=== PATIENT | female | born 1965 | race Caucasian/White ===

== ENCOUNTER 2016-10-10 21:44 | Emergency (ER) | payer OTHER ==
[~2016-10-10] VITALS: Ht 165.1 cm; Wt 55.3 kg
[~2016-10-10 21:44] MED LIST: TORADOL10 MG PO
[2016-10-10 22:50] LABS: ABSOLUTE BASOPHIL COUNT 0.1 /CUMM (0.0-0.2); ABSOLUTE EOSINOPHIL COUNT 0.1 /CUMM (0.0-0.7); ABSOLUTE GRANULOCYTE CT 5.4 /CUMM (1.4-6.5); ABSOLUTE LYMPH COUNT 3.4 /CUMM (1.2-3.4); ABSOLUTE MONOCYTE COUNT 0.6 /CUMM (0.10-0.60); BASOPHIL % 0.8 % (0.0-2.0); EOSINOPHIL % 1.5 % (0-5); GRANULOCYTE % 56.3 % (42.2-75.2); HEMATOCRIT 47.1 % (37-47); MEAN CORPUSCULAR HGB 29.4 PG (27.0-31.0); MEAN CORPUSCULAR HGB CONC 33.1 G/DL (33.0-37.0); MEAN CORPUSCULAR VOLUME 88.8 FL (81.0-99.0); MEAN PLATELET VOLUME 8.1 FL (7.4-10.4); PLATELET COUNT 221 /CUMM (130-400); RBC DISTRIBUTION WIDTH 13.3 % (11.5-14.5); RED BLOOD CELL CT 5.31 /CUMM (4.20-5.40); WHITE BLOOD CELL COUNT 9.6 /CUMM (4.8-10.8)
--- NOTE | 2016-10-10 22:56 | ED GI/GU/ABDOMINAL COMPLAINT ---
History of Present Illness General Chief Complaint: Abdominal Pain/Flank Pain Stated Complaint: RIGHT ABD PAIN Source: patient, old records, Exam Limitations: no limitations Vital Signs & Intake/Output Vital Signs & Intake/Output Vital Signs Date Time Temp Pulse Resp B/P Pulse O2 O2 Flow FiO2 Ox Delivery Rate 10/10 2352 97.1 60 18 166/81 95 Room Air 10/10 2253 Room Air 10/10 2158 98.6 91 18 173/96 96 Room Air ED Intake and Output 10/11 0000 10/10 1200 Intake Total Output Total Balance Patient 122 lb Weight Allergies Coded Allergies: NO KNOWN ALLERGIES (07/15/13) Reconcile Medications No Known Home Medications Triage Note: RECEIVED 51 YO FEMALE C/O SEVERE RIGHT FLANK AREA PAIN, STARTED TODAY. + NAUSEA/VOMITING. Triage Nurses Notes Reviewed? yes ? n Is pt currently ? No HPI: Patient presents for evaluation of a right-sided abdominal pain that began last night. Patient is not sure but it seemed to be gradual in onset. It has now become more severe. The right flank pain she states feels like a prior kidney stone pain. In addition she is also having a right lower abdominal pain that is more cramping in nature. She tried Gas-X for the possibility of gas pains without improvement. Pains worsened with exertion. Patient denies associated fever or cold symptoms dysuria or diarrhea. She has felt nauseous and has even vomited. Past History Travel History Traveled to [place] past 21 day No Medical History Any Pertinent Medical History? see below for history Neurological: NONE EENT: NONE Cardiovascular: NONE Respiratory: NONE Gastrointestinal: NONE Hepatic: NONE Renal: NONE Musculoskeletal: NONE Psychiatric: NONE Endocrine: NONE Blood Disorders: NONE Cancer(s): NONE Other Medical Hx: KIDNEY STONES Tetanus Vaccine: 09/27/13 Surgical History Surgical History: non-contributory, hysterectomy Psychosocial History Who do you live with Family What is your primary language Swedish Tobacco Use: Current Daily Use Daily Tobacco Use Amount/Type: => 5 Cigarettes daily Family History Hx Contributory? No Review of Systems Review of Systems Constitutional: Reports: no symptoms. EENTM: Reports: no symptoms. Respiratory: Reports: no symptoms. Cardiovascular: Reports: no symptoms. GI: Reports: see HPI. Genitourinary: Reports: no symptoms. Musculoskeletal: Reports: see HPI. Skin: Reports: no symptoms. Neurological/Psychological: Reports: no symptoms. Hematologic/Endocrine: Reports: no symptoms. Immunologic/Allergic: Reports: no symptoms. All Other Systems: Reviewed and Negative Physical Exam Physical Exam Gastrointestinal: see below Comments: Gen.: Well-nourished, well-developed, no acute respiratory distress., Mild distress secondary to pain. Head: Normocephalic, atraumatic. Eyes: Normal inspection bilaterally Ears: Normal inspection bilaterally Nose: Normal inspection Throat/mouth : Moist mucosa Neck: Supple, full range of motion, no goiter Heart: Regular rate and rhythm, no murmurs rubs or gallops Lungs: Clear to auscultation bilaterally with normal air entry Chest: Nontender Back: Normal range of motion, mild tenderness over the right flank with palpation and percussion Abdomen: Soft, right lower quadrant abdominal tenderness without rebound or guarding, nondistended, normal bowel sounds Extremities: Normal range of motion grossly, equal radial pulses, no cyanosis clubbing or edema Neurologic: Cranial nerves grossly intact, speech is clear Skin: warm and dry Psychiatric: Calm, cooperative, no apparent delusions or hallucinations Core Measures ACS in differential dx? No Severe Sepsis Present: No Septic Shock Present: No Progress Differential Diagnosis: kidney stone, ovarian cyst, pancreatitis, UTI/pyelo Plan of Care: Orders Procedure Date/time Status Add-on Test (ER Only) 10/11 2255 Active LIPASE 10/11 2227 Complete URINALYSIS 10/10 2221 Complete COMPREHENSIVE METABOLIC PANEL 10/10 2221 Complete CBC WITHOUT DIFFERENTIAL 10/10 2221 Complete Laboratory Tests 10/10/162237: Urine Color YEL, Urine Clarity CLEAR, Urine pH 7.0, Ur Specific [place] 1.010, Urine Protein NEG, Urine Ketones NEG, Urine Nitrite NEG, Urine Bilirubin NEG, Urine Urobilinogen 0.2, Ur Leukocyte Esterase NEG, Ur Microscopic SEDIMENT EXAMINED, Urine RBC RARE, Ur Epithelial Cells FEW, Urine Hemoglobin TRACE-INTACT , Urine Glucose NEG 10/10/162227: Anion Gap 11, Estimated GFR > 60, BUN/Creatinine Ratio 15.7, Glucose 78, Calcium 9.4, Total Bilirubin 0.4, AST 23, ALT 32, Alkaline Phosphatase 55, Total Protein 7.1, Albumin 4.2, Globulin 2.9, Albumin/Globulin Ratio 1.4, Lipase 75, CBC w Diff NO MAN DIFF REQ, RBC 5.31, MCV 88.8, MCH 29.4, RDW 13.3, MPV 8.1, Gran % 56.3, Lymphocytes % 34.9, Monocytes % 6.5, Eosinophils % 1.5, Basophils % 0.8, Absolute Granulocytes 5.4, Absolute Lymphocytes 3.4, Absolute Monocytes 0.6, Absolute Eosinophils 0.1, Absolute Basophils 0.1, PUBS MCHC 33.1 Diagnostic Imaging: Discussed w/RAD: CT Scan. Radiology Impression: PATIENT: SIRI ERICKSON PRESENT AGE: 51 PATIENT ACCOUNT NO: [id number] : 63 LOCATION: [facility] ORDERING PHYSICIAN: BJ WAY MD SERVICE DATE: 10/10/16 EXAM TYPE: CAT - CT ABD & PELVIS W/O IV CONTRAS EXAMINATION: CT ABDOMEN AND PELVIS WITHOUT CONTRAST CLINICAL INFORMATION: Right flank pain. Abdominal pain. COMPARISON: CT scan abdomen pelvis 10/28/2014 TECHNIQUE: Multidetector volumetric imaging was performed from the superior aspect of the liver through the pubic symphysis. Sagittal and coronal reformatted images were obtained on the technologist's workstation. DLP: 253.13 mGy-cm FINDINGS: LUNG BASES: The visualized lung bases are unremarkable. LIVER, GALLBLADDER, AND BILIARY TREE: The liver is normal in size, shape, and attenuation. No focal hepatic lesion or biliary ductal dilatation is present. The gallbladder is unremarkable with no evidence of radiopaque gallstones, gallbladder wall thickening, or obvious pericholecystic inflammatory changes. PANCREAS: Unremarkable. SPLEEN: Unremarkable. ADRENAL GLANDS: Unremarkable. KIDNEYS AND URETERS: There is a 3 mm stone and a 2 mm stone in the upper pole of the right kidney. There is a 1 mm stone in the mid pole of the right kidney. No stone in left kidney. There is no hydronephrosis. No ureteral calculus. There are multiple calcifications in the pelvis which are consistent with calcified phleboliths. No distal ureteral stone. BLADDER: Unremarkable. GASTROINTESTINAL TRACT: Moderate to large-volume of stool throughout colon. No bowel obstruction. No bowel wall thickening or edema. The appendix is normal. Small bowel loops unremarkable. ABDOMINAL WALL: No significant hernia is appreciated. LYMPH NODES: Normal. VASCULAR: A few scattered vascular wall calcifications of aorta. No aneurysm. PELVIC VISCERA: Status post hysterectomy. There are cystic structures in the pelvis likely related to ovary. 2 cysts are present. Largest at the midline measures 7.3 cm in diameter. There is a second cystic lesion in the far right adnexa measuring 2.8 cm AP. OSSEOUS STRUCTURES: Unremarkable. IMPRESSION: 1. Nonobstructive right renal stones. No hydronephrosis. 2. Status post hysterectomy. There are 2 pelvic cysts likely related to the ovaries, ovarian or paraovarian cyst. DICTATED BY: MYRA FERRARI MD DATE/TIME DICTATED:10/10/162348 CAKE MIXER:SEN DATE/TIME TRANSCRIBED:10/10/162348 CONFIDENTIAL, DO NOT COPY WITHOUT APPROPRIATE AUTHORIZATION. <Electronically signed in Other Vendor System> SIGNED BY: MYRA FERRARI MD 10/11/16 0000 Initial ED EKG: none Comments: 10/11/2016 12:29:33 AM patient has gotten good relief of pain with the Toradol. She appears comfortable and she is quite conversant and pleasant. Although the etiology of her pain is somewhat unclear at this point, I have informed her of the ovarian cysts seen on CAT scan. Departure Departure Disposition: HOME OR SELF CARE Condition: Stable Clinical Impression Primary Impression: Ovarian cyst Qualifiers: Laterality: bilateral Qualified Codes: N83.201 - Unspecified ovarian cyst, right side; N83.202 - Unspecified ovarian cyst, left side Secondary Impressions: Right flank pain Referrals: AMITA FREIRE,KIM JENNINGS (PCP/Family) Additional Instructions: Voltaren as prescribed for pain. Add [place] if necessary. Follow-up with your [facility] doctor on Thursday for reevaluation of your ovarian cysts. If any other signs or symptoms should occur please follow-up with your primary care doctor as soon as possible or return to the emergency department. Please note that there might be incidental findings in your evaluation that are unrelated to the current emergency department visit. Please notify your primary care doctor about this emergency department visit in order to obtain and review all of the testing performed so that these incidental findings can be monitored as needed. If you had an x-ray performed, please understand that some fractures may not be seen on the initial set of x-rays. If your symptoms persist you might need a repeat set of x-rays to check for such a fracture. If you had a laceration evaluated, please understand that foreign bodies such as glass or wood may not be visible to the naked eye or on plain x-rays. If the wound becomes red, swollen, increasingly more painful or if there is any drainage from the wound, please have it reevaluated by a physician for the possibility of a retained foreign body. Thank you for choosing the [facility] Emergency Department for your care. It was a pleasure to serve you today. Bj Way M.D. [facility] Departure Forms: Customer Survey General Discharge Information Prescriptions: Current Visit Scripts Diclofenac Sodium 1 TAB PO BID PRN PAIN #14 TAB Hydrocodone/Acetaminophen ([place] 5-325 Tablet) 1-2 TAB PO Q6P PRN PAIN #20 TAB Critical Care Note Critical Care Note Critical Care Time: 30-74 min
[2016-10-10 23:52] VITALS: BP 166/81
--- NOTE | 2016-10-11 | CT SCAN REPORT ---
EXAMINATION: CT ABDOMEN AND PELVIS WITHOUT CONTRAST CLINICAL INFORMATION: Right flank pain. Abdominal pain. COMPARISON: CT scan abdomen pelvis 10/28/2014 TECHNIQUE: Multidetector volumetric imaging was performed from the superior aspect of the liver through the pubic symphysis. Sagittal and coronal reformatted images were obtained on the technologist's workstation. DLP: 253.13 mGy-cm FINDINGS: LUNG BASES: The visualized lung bases are unremarkable. LIVER, GALLBLADDER, AND BILIARY TREE: The liver is normal in size, shape, and attenuation. No focal hepatic lesion or biliary ductal dilatation is present. The gallbladder is unremarkable with no evidence of radiopaque gallstones, gallbladder wall thickening, or obvious pericholecystic inflammatory changes. PANCREAS: Unremarkable. SPLEEN: Unremarkable. ADRENAL GLANDS: Unremarkable. KIDNEYS AND URETERS: There is a 3 mm stone and a 2 mm stone in the upper pole of the right kidney. There is a 1 mm stone in the mid pole of the right kidney. No stone in left kidney. There is no hydronephrosis. No ureteral calculus. There are multiple calcifications in the pelvis which are consistent with calcified phleboliths. No distal ureteral stone. BLADDER: Unremarkable. GASTROINTESTINAL TRACT: Moderate to large-volume of stool throughout colon. No bowel obstruction. No bowel wall thickening or edema. The appendix is normal. Small bowel loops unremarkable. ABDOMINAL WALL: No significant hernia is appreciated. LYMPH NODES: Normal. VASCULAR: A few scattered vascular wall calcifications of aorta. No aneurysm. PELVIC VISCERA: Status post hysterectomy. There are cystic structures in the pelvis likely related to ovary. 2 cysts are present. Largest at the midline measures 7.3 cm in diameter. There is a second cystic lesion in the far right adnexa measuring 2.8 cm AP. OSSEOUS STRUCTURES: Unremarkable. IMPRESSION: 1. Nonobstructive right renal stones. No hydronephrosis. 2. Status post hysterectomy. There are 2 pelvic cysts likely related to the ovaries, ovarian or paraovarian cyst.
[2016-10-11] MEDS ORDERED: NORCO 5-325 TA1 EACH PO (00:31)
[2016-10-11] MEDS ORDERED: DICLOFENAC SODI75 M2 PO (00:31)
== END 2016-10-11 00:43 ==
LOC: ERH 21:44
PROVIDERS: Physician Assistant Medical
DX: N83.209 Unspecified ovarian cyst, unspecified side (principal)
CPT/HCPCS: 74176; 81001; 96374; 96375; J1885; J2405